=== PATIENT | male | born 1990 | race Caucasian/White ===

== ENCOUNTER 2017-02-02 17:49 | Emergency (ER) | payer OTHER ==
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
--- NOTE | 2017-02-02 19:26 | ED ORDER SUMMARY ---
..... Patient: CHASTITY CAZARES OrderSheet [facility] VisitID: [id number] [place] [address] 26y, M Registration Date/Time: 02/02/2017 ORDER SHEET Weight: 90.7 kg (stated) Allergies: No Known Drug Allergy GENERAL ORDERS: CT Head wo Cont Urgent (18:06 02/02/2017 HBivens A.R.N.P.) (Ack 18:08 LNations ER Tech1) (18:25 MCampbell) Chest 2V Urgent (18:06 02/02/2017 HBivens A.R.N.P.) (Ack 18:08 LNations ER Tech1) (18:30 KWilliams R.N.) CBC w Diff Urgent (18:06 02/02/2017 HBivens A.R.N.P.) (Ack 18:08 LNations ER Tech1) (18:20 DDean R.N.) CMP Urgent (18:06 02/02/2017 HBivens A.R.N.P.) (Ack 18:08 LNations ER Tech1) (18:20 DDean R.N.) Shoulder 2V or more Left Urgent (18:14 02/02/2017 HBivens A.R.N.P.) (Ack 18:16 LNations ER Tech1) (18:30 KWilliams R.N.) MEDICATION ORDERS: IV FLUIDS: IV NS : initial bolus 1000 mL (1000 mL/hr), then none - (NOW) (18:06 02/02/2017 HBivens A.R.N.P.) (Ack 18:21 DDean R.N.) (18:33 DDean R.N.) IV Saline Lock (18:02/02/2017 HBivens A.R.N.P.) (18:20 DDean R.N.) ORDER SHEET NOTES: [Electronically signed by Wanda FelizR.N.PBernabe (19:54 02/02/2017)] [Electronically signed by Collins Al R.N. (20:16 02/02/2017)] [Electronically locked/signed by Collins Al R.N. (20:16 02/02/2017)]
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
--- NOTE | 2017-02-02 19:26 | ED ORDER SUMMARY ---
..... Patient: CHASTITY CAZARES OrderSheet [facility] VisitID: [id number] [place] [address] 26y, M Registration Date/Time: 02/02/2017 ORDER SHEET Weight: 90.7 kg (stated) Allergies: No Known Drug Allergy GENERAL ORDERS: CT Head wo Cont Urgent (18:06 02/02/2017 HBivens A.R.N.P.) (Ack 18:08 LNations ER Tech1) (18:25 MCampbell) Chest 2V Urgent (18:06 02/02/2017 HBivens A.R.N.P.) (Ack 18:08 LNations ER Tech1) (18:30 KWilliams R.N.) CBC w Diff Urgent (18:06 02/02/2017 HBivens A.R.N.P.) (Ack 18:08 LNations ER Tech1) (18:20 DDean R.N.) CMP Urgent (18:06 02/02/2017 HBivens A.R.N.P.) (Ack 18:08 LNations ER Tech1) (18:20 DDean R.N.) Shoulder 2V or more Left Urgent (18:14 02/02/2017 HBivens A.R.N.P.) (Ack 18:16 LNations ER Tech1) (18:30 KWilliams R.N.) MEDICATION ORDERS: IV FLUIDS: IV NS : initial bolus 1000 mL (1000 mL/hr), then none - (NOW) (18:06 02/02/2017 HBivens A.R.N.P.) (Ack 18:21 DDean R.N.) (18:33 DDean R.N.) IV Saline Lock (18:02/02/2017 HBivens A.R.N.P.) (18:20 DDean R.N.) ORDER SHEET NOTES: [Electronically signed by Wanda FelizR.N.PBernabe (19:54 02/02/2017)] [Electronically signed by Collins Al R.N. (20:16 02/02/2017)] [Electronically locked/signed by Collins Al R.N. (20:16 02/02/2017)]
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
--- NOTE | 2017-02-02 20:16 | ED MAR SUMMARY ---
..... Medication Administration Record [facility] [address] [place] [address] Patient: CHASTITY CAZARES Visit ID: [id number] 26y, M Weight: 90.7 kg Height/Length: 71 in BMI: 27.9 ALLERGIES: No Known Drug Allergy Start 18:28 02/02/2017 ChecoMargie RCarmen, Stop 19:40 02/02/2017 Collins Al R.N. Medication Administered: IV NS (SALINE), Dose: IV Fluids over 1 hour(s), Rate: 1000 mL/hr, Dispensed: 1000 mL bag, Site: #1 right AC. Medication Ordered: IV NS : initial bolus 1000 mL (1000 mL/hr), then none - (NOW).
--- NOTE | 2017-02-02 20:16 | ED MED RECONCILIATION SUMMARY ---
Patient: CHASTITY CAZARES Medication Reconciliation Report [facility] VisitID: [id number] [place] [address] 26y, M Registration Date/Time: 02/02/2017 Weight: 90.7 kg Height/Length: 71 in. BMI: 27.9 ALLERGIES: No Known Drug Allergy The patient's Home Medications are listed below: NONE. The source(s) of the original Home Medication information: patient The following Medications were given to the patient in the Emergency Department: IV NS IV Fluids bolus 0, then 1000 mL/hr, administered: 02/02/2017 6:28:00 PM The following Medications were prescribed to the patient: Naproxen 500 mg tablets: take 1 orally every 12 hours as needed for pain. Dispense twenty (20). No refills. -- Wanda Feliz, Robert.R.N.P. Flexeril 10 mg: Take 1 orally every 8 hours as needed for muscle spasm. Dispense twenty (20). No refills. Substitution is permissible. -- Wanda Feliz A.R.N.P.
--- NOTE | 2017-02-02 20:16 | ED MED RECONCILIATION SUMMARY ---
Patient: CHASTITY CAZARES Medication Reconciliation Report [facility] VisitID: [id number] [place] [address] 26y, M Registration Date/Time: 02/02/2017 Weight: 90.7 kg Height/Length: 71 in. BMI: 27.9 ALLERGIES: No Known Drug Allergy The patient's Home Medications are listed below: NONE. The source(s) of the original Home Medication information: patient The following Medications were given to the patient in the Emergency Department: IV NS IV Fluids bolus 0, then 1000 mL/hr, administered: 02/02/2017 6:28:00 PM The following Medications were prescribed to the patient: Naproxen 500 mg tablets: take 1 orally every 12 hours as needed for pain. Dispense twenty (20). No refills. -- Wanda Feliz, Robert.R.N.P. Flexeril 10 mg: Take 1 orally every 8 hours as needed for muscle spasm. Dispense twenty (20). No refills. Substitution is permissible. -- Wanda Feliz A.R.N.P.
--- NOTE | 2017-02-02 20:16 | ED MAR SUMMARY ---
..... Medication Administration Record [facility] [address] [place] [address] Patient: HCASTITY CAZARES Visit ID: [id number] 26y, M Weight: 90.7 kg Height/Length: 71 in BMI: 27.9 ALLERGIES: No Known Drug Allergy Start 18:28 02/02/2017 ChecoMargie RCarmen, Stop 19:40 02/02/2017 Collins Al R.N. Medication Administered: IV NS (SALINE), Dose: IV Fluids over 1 hour(s), Rate: 1000 mL/hr, Dispensed: 1000 mL bag, Site: #1 right AC. Medication Ordered: IV NS : initial bolus 1000 mL (1000 mL/hr), then none - (NOW).
== END 2017-02-02 19:43 ==
LOC: ED SRH 17:49
DX: S01.01XA Laceration without foreign body of scalp, initial encounter (principal); S20.319A Abrasion of unspecified front wall of thorax, initial encounter; S40.212A Abrasion of left shoulder, initial encounter; S80.812A Abrasion, left lower leg, initial encounter; V57.0XXA Driver of pick-up truck or van injured in collision with fixed or stationary object in nontraffic accident, initial encounter; Y93.9 Activity, unspecified; F17.210 Nicotine dependence, cigarettes, uncomplicated